=== PATIENT | female | born 1940 | race Caucasian/White ===

== ENCOUNTER 2017-05-03 10:32 | Emergency (ER) | payer MEDICARE ==
[~2017-05-03] VITALS: Ht 157.5 cm; Wt 52.3 kg
[~2017-05-03 10:32] MED LIST: ASPI81TA2 PO; ESTR1TAB16 PO; LOVA10TA PO; VALS1TAB47 PO
[2017-05-03 10:41] VITALS: BP 111/55; PULSE 73; RESP 20; O2SAT 98
--- NOTE | 2017-05-03 10:57 | ED.REPORT ---
HPI-Trauma Minor / Fall Date of Service May 03, 2017 ED Provider: Sally Adan Patient is a 76 year old female with a hx of HTN who presents to the ED via EMS complaining of L sided rib pain s/p falling and hitting the L side of her body on a table yesterday. Patient reports that she was getting out of bed and didn' t steady herself first, so she fell over. She reports she bumped her head lightly. She denies headache, neck pain, back pain, LOC, abdominal pain, nausea , vomiting, chest pain, SOB, bleeding, or any other symptoms. Patient takes an aspirin daily. Nursing Notes Stated Complaint: LEFT RIB PAIN/FALL Chief Complaint: Multiple Trauma/Fall Nursing Notes Reviewed: Yes Allergies: Coded Allergies: ciprofloxacin (Verified Allergy, 12/08/11) ciprofloxacin HCl (Verified Allergy, 12/08/11) Uncoded Allergies: AVOCADOS (Allergy, Severe, SWELLING, 12/08/11) Scheduled Aspirin-Expunged Drug, Do Not Renew! (Aspirin-Expunged Drug, Do Not Renew!) 81 Mg Tablet 81 MG PO DAILY Estrogen,Con/O-Atfwoql-Kpdolitg Drug! (Prempro 0.45/1.5-Expunged Drug, Do Not Renew!) 1 Tab Tablet 1 TAB PO DAILY Lovastatin-Expunged Drug, Do Not Renew! (Lovastatin-Expunged Drug, Do Not Renew! ) 10 Mg Tablet 10 MG PO DAILY Valsartan/HCTZ-Expunged Drug, Do Not Renew! (Diovan HCT 80-12.5 Expunged Do Not Renew!) 1 Tab Tablet 1 TAB PO DAILY Scheduled PRN Hydrocodone-Acetaminophen 5-325 mg (Hydrocodone-Acetaminophen 5-325 mg) 1 Each Tablet 1-2 TABLET PO QID PRN PRN For Pain General Time Seen by MD: 10:57 Chief Complaint Fall Hx Obtained From: Patient, Spouse Arrived By: Ambulance Onset Occurred: Yesterday Symptom Duration: Since onset Caused by: Fall on ground Context: Occurred at: Home injury Quality: Painful Severity: Current: Moderate Severity: Maximum: Moderate Context: Immunizations Unknown Past Medical History Past Medical History Anxiety arthritis herniated disk Graves disease Eczema Reports: Hyperlipidemia, Hypertension Past Surgical History R hip surgery Smoking History Current Every Day Smoker Social History Alcohol Use: "Social" Ambulatory Status Independent Review of Systems Review of Systems Note: + L sided rib pain Respiratory: Denies: Shortness of breath Musculoskeletal: Denies: Back pain, Neck pain Neurologic: Denies: Change LOC, Headache Complete sys rev & neg: except as marked. Cardiovascular: Denies: Chest pain GI: Denies: Abdominal pain, Nausea, Vomiting Hematologic: Denies Bleeding Physical Exam Initial Vital Signs Vital Signs (First) Date Time Temp Pulse Resp B/P Pulse Ox O2 Delivery O2 Flow Rate FiO2 05/03/17 10:41 36.7 73 20 111/55 98 Room Air Initial VS: Reviewed, Vital signs abnormal Head / Eyes: Atraumatic, Normocephalic, PERRL Skin: Warm, Dry Neurologic: Alert, Oriented, Nonfocal Psychiatric: Mood/affect normal, Behavior normal, Normal thought content General/Constitutional: Awake, Alert Neck: Atraumatic, Supple, Full range of motion Respiratory / Chest: Breath sounds = bilat, No respiratory distress Mild wheezes L chest wall tenderness Cardiovascular: Heart rate NL, Regular rhythm, Heart sounds NL Abdomen: Soft Tenderness/Guarding/Rebound: Positive: Tender LUQ... Flank / Spine / Paraspinal: Positive: Flank tender L Interpretation & Diagnostics Lab Results Interpretation Result Diagram: 05/03/17 1205 05/03/17 1205 Test 05/03/17 11:49 05/03/17 12:05 Hold Urine Received (Received) White Blood Count 6.6th/mm3 (3.8-10.1) Red Blood Count 3.73mil/mm3 (3.90-5.20) Hemoglobin 12.2g/dL (12.0-15.6) Hematocrit 35.5% (35.0-46.0) Mean Corpuscular Volume 95.2fL (81-100) Mean Corpuscular Hemoglobin 32.7pg (27.0-35.0) Mean Corpuscular Hemoglobin Concent 34.4% (32.0-37.0) Red Cell Distribution Width 13.3% (12.3-15.4) Platelet Count 144bil/L (150-400) Neutrophils (%) (Auto) 62.0% (40-74) Lymphocytes (%) (Auto) 25.8% (14-46) Monocytes (%) (Auto) 10.2% (4-12) Eosinophils (%) (Auto) 1.5% (0-5) Basophils (%) (Auto) 0.3% (0-3) Sodium Level 140mEq/L (134-144) Potassium Level 4.5mEq/L (3.5-5.2) Chloride Level 103mEq/L (97-108) Carbon Dioxide Level 24mmol/L (18-29) Blood Urea Nitrogen 22mg/dL (8-27) Creatinine 0.96mg/dL (0.57-1.00) Estimat Glomerular Filtration Rate 81mL/min (>59) Glucose Level 97mg/dL (60-99) Calcium Level 9.1mg/dL (8.5-10.1) Total Bilirubin 0.7mg/dL (0.0-1.2) Aspartate Amino Transf (AST/SGOT) 21U/L (0-50) Alanine Aminotransferase (ALT/SGPT) 11U/L (0-32) Alkaline Phosphatase 62U/L (25-165) Total Protein 6.5g/dL (6.4-8.4) Albumin 3.7g/dL (3.4-5.0) Hold Srteeter Top Tube Received (Received) CT Abd / Pelvis Interpretation IMPRESSION: 1. Mildly displaced fractures of the left 9th through 11th ribs. 2. Minimal left pleural effusion with left basilar dependent atelectasis. No evidence of pneumothorax. 3. Mild fibrotic changes in the lung bases. 4. Lobulated filling defect within the trachea likely representing mucus. Dictated by: Brandon Mensah M.D. on 05/03/2017 at 13:13 Approved by: Brandon Mensah M.D. on 05/03/2017 at 13:20 Study type: Abdominal CT IV contrast Interpretation / Wet Read by: Interpret - Radiologist Re-Eval/Medical Decision Med Decision/Clinical Course Rib fractures without underlying solid organ injury, oxygenating well, patient is feeling better after being medicated, is ambulatory however with pain. Will discharge with pain management. Return and follow-up precautions given Re-Evaluation/Progress : Time of Eval: 15:04 Re-Evaluation/Progress Note: Discussed imaging results and plan for discharge. Patient understands and agrees with plan. All questions addressed at this time. Counseled Regarding: Diagnosis, Lab results, Need for follow-up, When/why to return to ED Discharge & Departure Impression: Primary Impression: Ribs, multiple fractures Encounter type: initial encounter Fracture type: closed Laterality: unspecified laterality Qualified Code: S22.49XA - Multiple fractures of ribs, unspecified side, initial encounter for closed fracture Disposition: Home Discharge Condition All VS Reviewed: Yes Condition: Stable Patient Instructions: Fall Prevention for Older Adults (ED) Additional Instructions: You have several rib fractures on the left side without signs of internal bleeding. Use Vicodin as needed for pain. Follow-up with regular doctor next 2 days. Return to the ER as needed if worse. Referrals: Tessy Mccabe MD (PCP) [facility] Attestation Portions of this note were transcribed by Ivette Cerrato. I, Dr. Zavala personally performed the history, physical exam and medical decision-making; I reviewed and confirmed the accuracy of the information in the transcribed note. Signed: Marcus Shaffer, 05/03/17 copies to: Tessy Mccabe MD, Timothy S DO May 03, 2017 10:57 IVETTE CERRATO May 03, 2017 11:06
[2017-05-03] MEDS ORDERED: 0.9% Sodium Chloride 1,000 ML IV ONE (11:04)
[2017-05-03] MEDS ORDERED: Ondansetron 2 mg/mL 2 mL Inj IVPUSH PRN (11:05)
[2017-05-03] MEDS ORDERED: 0.9% Sodium Chloride 500 ML IV ONE (11:05)
[2017-05-03] MEDS: HYDROmorphone 0.5 mg/0.5 mL iSecure Syringe IVPUSH PRN ×2 (11:53→13:13)
[2017-05-03 12:21] LABS: BASOPHILS % (AUTO) 0.3 % (0-3); EOSINOPHILS % (AUTO) 1.5 % (0-5); MONOCYTES % (AUTO) 10.2 % (4-12); Mean Corpuscular Hemoglobin 32.7 pg (27.0-35.0); Mean Corpuscular Volume 95.2 fL (81-100); Platelet Count 144 bil/L (150-400)
[2017-05-03 12:51] VITALS: BP 111/55; PULSE 73; RESP 20; O2SAT 98
[2017-05-03 13:08] VITALS: BP 116/53; PULSE 80; RESP 20; O2SAT 98
--- NOTE | 2017-05-03 13:21 | DRSVH ---
PROCEDURE: CT CHEST, ABDOMEN AND PELVIS WITH CONTRAST ([id number]) INDICATIONS: fall, left chest/abd/flank pain TECHNIQUE: After the administration of intravenous contrast, 5 mm thick sections acquired from the lung apices t o the symphysis. 5 mm thick coronal and sagittal reformats were acquired. Additional 7 mm thick cor onal maximum intensity projection (MIP) reformats acquired through the lungs. Optional 10-minute del ayed imaging may be performed from the kidneys to the bladder. For radiation dose reduction, the fol lowing was used: automated exposure control, adjustment of mA and/or kV according to patient size. COMPARISON: None. FINDINGS: Image quality: Excellent. CHEST: Lungs: No definite pulmonary contusions or lacerations. No pneumothorax. There is a minimal left p leural effusion with probable associated compressive atelectasis. There also peripheral reticular in terstitial opacities with mild septal thickening. No traction bronchiectasis. There is a right para central dependent filling defect within the trachea measuring up to approximately 1.3 x 0.7 cm likely representing mucus. Mediastinum: No mediastinal hematomas. Heart size is normal. No pericardial effusion. Thoracic ao rta and pulmonary arteries demonstrate normal size and enhancement. No mediastinal or hilar adenopat hy. Esophagus is normal in caliber. There is a small hiatal hernia. Chest wall: No rib fractures. No subcutaneous emphysema. No axillary or supraclavicular adenopathy . Thyroid gland demonstrates no discrete nodules. ABDOMEN: Solid organs: Liver and spleen are normal in size and enhancement, without lacerations. Gallbladder is distended without calcified gallstones. Biliary system is non-dilated. Pancreas enhances normal ly, without transection. There is borderline pancreatic duct dilatation measuring up to approximatel y 3 mm. No discrete mass lesion identified. No adrenal hematomas. Both kidneys enhance normally, w ithout hydronephrosis or lacerations. There small bilateral renal cysts. Peritoneum and bowel: No free fluid or air. Small and large bowel loops demonstrate normal wall thi ckness and caliber. There is colonic diverticulosis without acute diverticulitis. Nodes and vessels: No retroperitoneal or mesenteric adenopathy. Aorta and inferior vena cava are no rmal in size and enhancement. Miscellaneous: No ventral hernias. PELVIS: Genitourinary: Bladder wall thickness is normal. Miscellaneous: No inguinal hernias or adenopathy. Bones: There are mildly displaced fractures of the left 9th through 11th ribs laterally. Pelvic rin g and hip joints appear intact. No vertebral compression fractures. There are postsurgical changes within the visualized proximal right femur consistent with prior ORIF. IMPRESSION: 1. Mildly displaced fractures of the left 9th through 11th ribs. 2. Minimal left pleural effusion with left basilar dependent atelectasis. No evidence of pneumothor ax. 3. Mild fibrotic changes in the lung bases. 4. Lobulated filling defect within the trachea likely representing mucus. Dictated by: Brandon Mensah M.D. on 05/03/2017 at 13:13 Approved by: Brandon Mensah M.D. on 05/03/2017 at 13:20
[2017-05-03] MEDS ORDERED: HYDR-4003 PO (15:00)
== END 2017-05-03 15:35 | disposition home or self-care (01) ==
LOC: SED 10:32
DX: S22.49XA Multiple fractures of ribs, unspecified side, initial encounter for closed fracture (principal); W06.XXXA Fall from bed, initial encounter; Y93.89 Activity, other specified; Y92.009 Unspecified place in unspecified non-institutional (private) residence as the place of occurrence of the external cause; Y99.8 Other external cause status; I10 Essential (primary) hypertension; E78.5 Hyperlipidemia, unspecified; F17.200 Nicotine dependence, unspecified, uncomplicated; Z79.82 Long term (current) use of aspirin; Z88.1 Allergy status to other antibiotic agents
CPT/HCPCS: 36415; 71260; 74177; 80053; 85025; 86850; 96361; 96374; 99285; J1170; J7040; Q9967